=== PATIENT | female | born 1930 | race Caucasian/White ===

== ENCOUNTER → 2017-01-06 | Day surgery (SDC) | payer OTHER, MEDICARE ==
--- NOTE | 2017-01-06 11:39 | Operative Report ---
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 A lid speculum was placed to retract the lids. The case was begun by making a temporal incision with a 2.4 mm keratome. The eye was stabilized with a Mcgee ring during this incision. 1 mL of non-preserved lidocaine was introduced into the anterior chamber to provide anesthesia. The anterior chamber was then filled and deepened with viscoelastic. A curvilinear capsulorrhexis was achieved using a 30-gauge needle and is a cystotome and capsulorrhexis was finished using a Utrata forceps. A significamnt amount of instability in the anterior capsule was noted. A second or paracentesis incision was made temporally with a 1 mm MVR blade. The lens was then hydrodissected with balanced salt solution and found to be rotatable. The lens emulsification was begun but on removing the quadrants the entire bag came with each portion. A decision was made to convert to an extracapsular lens extraction. Viscoat was placed behind the lens. The incision was enlarged to 7 mm. A lens loop was placed under the lens and the bulk of it was removed from the eye by depressing the main inciison and applying counterpressure. Vitreous followed this as expected. Two additonal pieces of necleus were retrieved. A mechanical anterior vitrectomy was done above and below the iris plane. The lens a MTA4UO 18.0 Diopter was then placed into the anterior chamber on top of the iris. All four footplates were checked and found to be in good potion. This was done after the vitrector was used to make an iridotomy, miochol was used to bring down the pupil which came down in a rounded fashion. The residual cortical material was removed using automated irrigation and aspiration. The wound was then sutured with 6 interrupted 10-0 nylon sutures whose knots were trimmed and buried. An additional suture was placed in the paracentesis incision. The wounds were checked and found not to be leaking. The lid speculum was removed from the orbit. Antibiotic and steroid drops and maxitrol ointment were placed on the eye and then the eye was patched and shielded. Monitoring equipment was removed from the patient and the patient was removed from the operative suite to the holding area. The patient tolerated the procedure well and will be seen in the office tomorrow.
== END ==
LOC: STS 03:06
DX: H25.9 Unspecified age-related cataract (principal); H43.02 Vitreous prolapse, left eye; E07.9 Disorder of thyroid, unspecified; I48.91 Unspecified atrial fibrillation; Z79.01 Long term (current) use of anticoagulants; I10 Essential (primary) hypertension; I25.810 Atherosclerosis of coronary artery bypass graft(s) without angina pectoris; Z87.891 Personal history of nicotine dependence
CPT/HCPCS: J2001; J2250; V2632